=== PATIENT | female | born 1960 ===

== ENCOUNTER 2017-05-18 07:27 | Emergency (ER) | payer OTHER ==
[~2017-05-18] VITALS: Ht 157.5 cm; Wt 70.4 kg
[2017-05-18 07:32] VITALS: Ht 157.5 cm; Wt 70.4 kg
[2017-05-18] MEDS ORDERED: HYDR-906 PO (07:57)
[2017-05-18] MEDS ORDERED: NAPR-260 PO (07:57)
[2017-05-18] MEDS ORDERED: HYDROCODONE/APAP (5/325) TAB PO ONE (08:00)
[2017-05-18] MEDS ORDERED: CYCL-319 PO (08:00)
--- NOTE | 2017-05-18 08:20 | ERD ---
ER Documentation Chief Complaint Chief Complaint Complains of neck and back pain Hx of Osteoporosis HPI This is a 57-year-old female who presents to the emergency department today complaining of some neck and back pain. Patient states she has a history of MS and osteoporosis. States that she lives in [place] but is out here staying with a friend. States that she has been to different pain management doctors but has been out of pain management for the past 6 months. States that she has an appointment scheduled for Saturday at [facility] and would like pain medicine just to get her to Saturday. Denies any new trauma. States that she also has taken alprazolam in the past when she does go to the [facility]. States she is also taken Soma for muscle relaxants and Vicodin in the past. States that she took ibuprofen last night but it is not helping her. Denies any fevers or chills, dysuria, loss of bowel or bladder control. ROS All systems reviewed and are negative except as per history of present illness. Medications Home Meds Active Scripts Cyclobenzaprine Hcl* (Cyclobenzaprine Hcl*) 10 Mg Tablet, 10 MG PO QHS, #7 TAB Prov:DARION ARAUJO PA-C 05/18/17 Naproxen* (Naprosyn*) 500 Mg Tablet, 500 MG PO BID Y for PAIN AND/OR INFLAMMATION, #30 TAB Prov:DARION ARAUJO PA-C 05/18/17 Hydrocodone/Acetaminophen ([place] 5-325 Tablet) 1 Each Tablet, 1 TAB PO Q6H Y for PAIN, #7 TAB Prov:DARION ARAUJO PA-C 05/18/17 Allergies Allergies: Coded Allergies: No Known Allergy (Unverified , 05/18/17) PMhx/Soc Medical and Surgical Hx: pt denies Medical Hx, pt denies Surgical Hx History of Surgery: No Anesthesia Reaction: No Hx Neurological Disorder: No Hx Respiratory Disorders: No Hx Cardiac Disorders: No Hx Psychiatric Problems: No Hx Miscellaneous Medical Probl: No Hx Alcohol Use: No Hx Substance Use: No Hx Tobacco Use: Yes Smoking Status: Current every day smoker Physical Exam Vitals Vital Signs Date Time Temp Pulse Resp B/P Pulse Ox O2 Delivery O2 Flow Rate FiO2 05/18/17 07:32 98.3 96 20 142/88 97 Physical Exam Const: NAD Head: Atraumatic Eyes: Normal Conjunctiva ENT: Normal External Ears, Nose and Mouth. Neck: Full range of motion..~ No meningismus. Resp: Clear to auscultation bilaterally Cardio: Regular rate and rhythm, no murmurs Abd: Soft, non tender, non distended. Normal bowel sounds Skin: No petechiae or rashes Back: Lumbar spine diffuse tenderness with lordoctic curve. No specific CVA tenderness. Negative straight leg raise. Pulses 2+. Ext: No cyanosis, or edema Neur: Awake and alert Psych: Normal Mood and Affect Results 24 hrs Current Medications Medications (Trade) Dose Ordered Sig/Alex Route PRN Reason Start Time Stop Time Status Last Admin Dose Admin Acetaminophen/ Hydrocodone Bitart ([place] (5/325)) 1 tab ONCE ONCE PO 05/18/17 08:00 05/18/17 08:01 DC 05/18/17 07:56 Procedures/MDM This is a 57-year-old female who presents to the emergency department today complaining of back and neck pain that has been chronic. Patient states that she has a history of MS and osteoporosis patient states that she is aware of her diagnosis and is not requesting further evaluation and does not wish to be evaluated but she does want something for the pain. Patient indicated she has an appointment at [facility] on Saturday with a new pain management doctor and was requesting pain medicine just to get her through to Saturday. Upon review of patient's medical records patient has never been seen here in this emergency department. There is no information on her within the past 6 months on an [facility] report and a cures report shows that she has been given alprazolam several weeks ago. Patient did endorse taking this medication. Patient does not appear to be exhibiting drug-seeking behavior at this time although she did state that she is usually given something strong for pain and that Toradol does not work. Patient was okay with being given one [place] here in the emergency department and was grateful for a few tablets for home. Patient was given 7 pills of [place], Flexeril and Naprosyn. I did explain to the patient that we would not continue to give her pain medication and patient understood stating that she does have an appointment with pain management on Saturday. Symptoms at this time consistent with acute on chronic pain. At this time the patient is stable for discharge and outpatient management. Patient should follow up with their PCP in the next 1-2 days. They may return to the emergency department sooner for any persistent or worsening of symptoms. Patient understood and agreed with the plan. Departure Diagnosis: Primary Impression: Pain Condition: Fair Patient Instructions: Pain Management, Back Pain (Acute Or Chronic) Referrals: your pain managment Additional Instructions: Call your primary care doctor TOMORROW for an appointment during the next 1-2 days.See the doctor sooner or return here if your condition worsens before your appointment time. Keep Appointment with your pain management doctor on Saturday. Take [place] for severe pain otherwise take Naprosyn or Tylenol or motrin. Flexeril for muscle spasms. Take only at night and do not drive while taking this medication DARION ARAUJO PA-C May 18, 2017 08:20
== END 2017-05-18 08:11 | disposition home or self-care (01) ==
LOC: FTE 07:27
DX: M54.2 Cervicalgia (principal); M54.5 Low back pain; F17.210 Nicotine dependence, cigarettes, uncomplicated
CPT/HCPCS: Z7502; Z7610; 99284